=== PATIENT | male | born 1960 | race Caucasian/White ===

== ENCOUNTER 2022-09-06 19:16 | Emergency (ER) | payer OTHER ==
[~2022-09-06] VITALS: Ht 188 cm; Wt 148.8 kg
[2022-09-06] MEDS ORDERED: FLUORESCEIN SODIUM 1 STRIP STRIP ONE (22:26)
[2022-09-06] MEDS ORDERED: TETANUS/DIPHTHERIA TOXOID [ADULT] 0.5 ML VIAL IM ONE (22:30)
[2022-09-06] MEDS ORDERED: MOXIOS OU (22:53)
[2022-09-06] MEDS ORDERED: IBUP-2070 PO (22:53)
[2022-09-06] MEDS ORDERED: FLUORESCEIN SODIUM 1 STRIP STRIP OP SCH (23:00)
[2022-09-06] MEDS ORDERED: CEPH500C2 PO (23:03)
[2022-09-06 23:07] VITALS: BP 158/98
== END 2022-09-06 23:08 | disposition home or self-care (01) ==
LOC: EDH 19:16
DX: T14.8XXA Other injury of unspecified body region, initial encounter (principal); H57.89 Other specified disorders of eye and adnexa; I10 Essential (primary) hypertension; Z79.899 Other long term (current) drug therapy; X58.XXXA Exposure to other specified factors, initial encounter; Y93.89 Activity, other specified; Y92.89 Other specified places as the place of occurrence of the external cause; Y99.8 Other external cause status
CPT/HCPCS: 90714; 96372

== ENCOUNTER 2024-03-28 14:13 | Emergency (ER) | payer BC ==
[~2024-03-28] VITALS: Ht 185.4 cm; Wt 101.2 kg
[~2024-03-28 14:13] MED LIST: CEPH500C2 PO; IBUP-2070 PO; MOXIOS OU
--- NOTE | 2024-03-28 15:25 | ERN ---
General Chief Complaint: Lower Extremity Pain/Injury Stated Complaint: RT THIGH PAIN Time Seen by MD: 14:22 History of Present Illness Initial Comments 63-year-old male, history of to lifetime unprovoked DVTs, presents for right thigh pain. Patient reports he felt episode of right thigh pain that was unprovoked earlier in the day. It is in the medial thigh. Throbbing type pain. It was brief and he currently does not feel it. No swelling or skin texture changes. He denies trauma. He was sent over by his primary doctor to ensure that there was no DVT. He was currently taking Eliquis b.i.d.. He also has hypertension and MIGUEL. No other complaints. No shortness of breath dyspnea or chest discomfort. Allergies: Coded Allergies: No Known Allergies (Unverified Allergy, Unknown, 09/06/22) Home Meds Active Scripts Cephalexin (Cephalexin) 500 Mg Capsule, 500 MG PO TID for 10 Days, #30 CAP Prov:RHODA SINCLAIR 09/06/22 Ibuprofen (Ibuprofen) 600 Mg Tablet, 600 MG PO Q6H PRN for PAIN, #15 TAB Prov:RHODA SINCLAIR 09/06/22 Moxifloxacin HCl (Vigamox 0.5% Ophth Soln) 20 Drop/Ml Opsol, 1 DROP OU BID for 10 Days, #1 BOTTLE Prov:RHODA SINCLAIR 09/06/22 Past Medical History Past Medical History: DVT Medical History Other: VENOUS ULCER RT LEG Past Surgical History: Tonsillectomy, Other Surgical History Other: LASIK, LUMBAR SX ROS Dictation CONSTITUTIONAL: No chills, no fever, no weakness, no diaphoresis, no malaise. HEAD/FACE: No signs of trauma. EENT: No eye pain, no blurred vision, no tearing, no double vision, no ear pain, no ear discharge, no nose pain, no nasal congestion, no throat pain, no throat swelling, no mouth pain. RESPIRATORY: No cough, no orthopnea, no SOB, no stridor, no wheezing. CARDIOVASCULAR: No chest pain, no edema, no palpitations, no syncope. GASTROINTESTINAL/ABDOMINAL: No abdominal pain, no constipation, no diarrhea, no nausea, no vomiting. GENITOURINARY: No abnormal discharge, no dysuria, no frequent urination, no hematuria. No complaints of pain in the genitals. MUSCULOSKELETAL: Right thigh pain INTEGUMENTARY: No change in color, no change in hair/nails, no dryness, no lesion, no lumps, no rash. NEUROLOGICAL/PSYCH: No anxiety, not depressed, no emotional problem, no headache, no numbness, no pre-existing deficit, no history of seizures, no tremors, no weakness. HEMATOLOGIC/LYMPHATIC: Not anemic, no history of blood clots, no apparent bleeding, no bruising, glands not swollen. All Systems Negative, Except as Noted. Physical Exam Physical Exam Dictation VITAL SIGNS: Reviewed. GENERAL APPEARANCE: Alert, oriented x3, no acute distress HEAD AND FACE: Non-traumatic. EYES: PERRL, pink conjunctivas, eyelid no trauma, anterior chamber clear. EARS: Pinnas intact and no signs of trauma or erythema. Ear canals clear and no discharge. TMs no erythema. NOSE: No discharge, no bleeding. OROPHARYNX: Mouth normal, teeth no caries, tongue pink. Pharynx clear, no erythema. Tonsils no exudates, no abscesses noted. Mucous membrane moist. NECK: Supple, non-tender, no thyromegaly, no masses, no JVD, no bruits. BREAST: Deferred. CHEST: No tenderness, no crepitus, no paradoxical movement, no retractions. LUNGS: Clear, well-ventilated, symmetric, no rales, no wheezing, no rhonchi, no stridor, good breath sounds bilaterally. HEART: Regular rate, regular rhythm, no murmur, no gallops. VASCULAR: No peripheral edema. ABDOMEN: Soft, positive bowel sounds, nondistended, no guarding, nontender, no rebound, no masses no hepatomegaly, no splenomegaly, no Amaral's sign, no hernias. RECTAL: Deferred. GENITAL: Deferred. NEUROLOGICAL: Normal speech, gross motor function intact, gross sensory function intact. MUSCULOSKELETAL: Neck nontender, full range of motion, back nontender, full range of motion. Negative Jorge L sign. No obvious skin deformities. Neurovascularly intact to the leg. EXTREMITIES: Nontender, full range of motion. SKIN: Color pink, dry, no turgor, no rash, no lacerations, no abrasions, no contusions. LYMPHATICS: Deferred. MDM CC: Right thigh pain unprovoked Historian: Patient Comorbidities: Previous histories of DVTs. Limitations by social determinants of health: None Differential diagnosis: DVT, musculoskeletal type pain, skin texture change, other. Vital signs are stable No labs indicated The DVT study of the leg is unremarkable. No further workup indicated. We will recommend outpatient follow up with a re peat DVT study in a week if he continues with symptoms. Patient agrees with the plans. I did consult his primary doctor to let him know about the results of the study in the plan. ED Course Orders Procedure Category Date Status Time Us Venous Doppler US 03/28/24 Taken Unilateral 14:24 Vital Signs Date Time Temp Pulse Resp B/P (MAP) Pulse Ox O2 Delivery O2 Flow Rate FiO2 03/28/24 14:16 98.2 58 18 152/90 0 DX & DISP Disposition: Discharge Departure Impression: Primary Impression: Right thigh pain Condition: Stable Additional Instructions: The venous Doppler study of your right leg is unremarkable for blood clots or DVT. As we discussed, the Ultrasounds studies are about 90-95% sensitive for DVTs. If you continue with symptoms within the next week or so, I recommend that you repeat the ultrasound. You can coordinate repeat ultrasound as an outpatient or return to the emergency department. Alternate Tylenol (1000 mg) or ibuprofen (600 mg) as needed for pain or discomfort. These medications are [id number]. You can also apply ice to the affected area as needed. Please immediately return to the emergency department if you develop any concerning symptoms such as chest pain or shortness of breath. Referrals: DONI TAMAYO MD (PCP) REGINALDO LEE DO Mar 28, 2024 15:25
--- NOTE | 2024-03-28 15:26 | HMCIMG ---
Exam Type: US VENOUS DOPPLER UNILATERAL Clinical Information: right swelling, hx DVT Comparison: None Findings: The examination shows normal deep venous system. There is normal compressibility at all levels. There is no intraluminal clot. There is no occlusion. Adequate response is obtained on augmentation. Impression: No evidence of DVT.
[2024-03-28 15:58] VITALS: BP 107/61; PULSE 54; RESP 18; TEMP 98.1; O2SAT 0
== END 2024-03-28 16:01 | disposition home or self-care (01) ==
LOC: EDH 14:13
DX: M79.651 Pain in right thigh (principal); Z79.01 Long term (current) use of anticoagulants; Z90.89 Acquired absence of other organs; X58.XXXA Exposure to other specified factors, initial encounter; Y93.89 Activity, other specified; Y92.89 Other specified places as the place of occurrence of the external cause; Y99.8 Other external cause status
CPT/HCPCS: 93971; 99284